=== PATIENT | female | born 1935 | race Caucasian/White ===

== ENCOUNTER 2017-02-03 13:13 | Inpatient (IN) | payer OTHER, BC ==
[~2017-02-03] VITALS: Ht 162.6 cm; Wt 60.7 kg
[~2017-02-03 13:13] MED LIST: ARTANE2 MG PO; ASPIRIN81 M1 PO; BIOTENE MOISTUR45 ML MM; BIOTENE ORALBAL42 GM MM; BUMETANIDE2 MG PO; CALCIUM600 MG PO; CARBIDOPA/LEVO1 EACH PO; COUMADIN2 MG PO; COUMADIN4 MG PO; D3 + K2 DOTS 11 EACH PO; FUROSEMIDE20 MG PO; GEMFIBROZIL600 MG PO; GLUCOSAMINE CH1 EACH PO; GLUCOSAMINE1000 MG PO; K-DUR20 MEQ PO; KLOR-CON 1010 ME1 PO; KLOR-CON M1010 MEQ PO; LASIX20 MG PO; LEXAPRO10 MG PO; LEXAPRO20 MG PO; MIRAPEX1 MG PO; MOBIC7.5 MG PO; MYCELEX10 MG PO; REFRESH LACRI-3.5 GM BOTH EYES; SENNA8.6 M1 PO; SINEMET 25-1001 EACH PO; SINEMET CR 25-1 EACH PO; SUPER B COMPLE1 EAC1 PO; SUPER B-50 COM1 EACH PO; VITAMIN D1000 INTUN PO; VITAMIN D31000 UNIT PO
[2017-02-03 15:15] LABS: HEMATOCRIT 39.1 % (36.0-46.0); MCH 30.8 PG (29.0-34.0); MCHC 32.7 G/DL (30.0-36.0); MCV 94.2 FL (83-99); NRBC (%) 0.2 /100 WBC (0-0); RBC DIS.WIDTH-CV 14.7 % (11.8-14.6); RBC DIS.WIDTH-SD 50.7 % (39-53); RED BLOOD COUNT 4.15 M/uL (3.80-5.20); WHITE BLOOD COUNT 9.8 K/uL (4.1-10.2)
[2017-02-03 15:23] LABS: INTER. NORMALIZED RATIO 0.9; PROTHROMBIN TIME 10.6 SEC (10.2-12.9)
[2017-02-03 15:27] LABS: CHLORIDE 108 mEq/L (99-109); POTASSIUM 4.4 mEq/L (3.7-5.4); SODIUM 143 mEq/L (136-147)
[2017-02-03 15:30] LABS: GLUCOSE 76 mg/dL (70-99)
[2017-02-03 15:31] LABS: ANION GAP 8 MEQ/L (2-14)
[2017-02-03 15:32] LABS: TOTAL BILIRUBIN 0.6 mg/dL (0.0-1.0)
[2017-02-03 15:33] LABS: ALKALINE PHOSPHATASE 127 IU/L (3-129); GFR ESTIMATE (CALCULATED) > 59 mL/min/
[2017-02-03 15:34] LABS: UREA NITROGEN (BUN) 22 mg/dL (9-23)
[2017-02-03 15:38] LABS: TROP-I INTERPRETATION NEGATIVE; TROPONIN-I 0.01 ng/mL (0.0-0.30)
[2017-02-03] MEDS ORDERED: GLUCOSAMINE &1 EACH PO (16:32)
[2017-02-03] MEDS ORDERED: ATORVASTATIN CA20 MG PO (16:33)
[2017-02-03] MEDS ORDERED: KENALOG,ARISTOC80 GM TP (16:33)
[2017-02-03] MEDS ORDERED: ASPIR 8181 M1 PO (16:34)
[2017-02-03] MEDS ORDERED: AMLODIPINE BESY10 MG PO (16:34)
[2017-02-03] MEDS ORDERED: MAGNESIUM400 M1 PO (16:35)
[2017-02-03 16:39] LABS: PLATELET CLUMPS PRESENT - PLATELET COUNT APPEARS ADQ.; PLATELET COUNT UNABLE TO REPORT K/uL (156-360)
[2017-02-03 17:54] LABS: ADD MIUA? YES; BILIRUBIN NEGATIVE; BLOOD NEGATIVE; COLOR YELLOW ((YELLOW)); GLUCOSE (STRIP) NEGATIVE; KETONES NEGATIVE; LEUKOCYTES LARGE; NITRITE POSITIVE; PROTEIN (STRIP) NEGATIVE; SPECIFIC GRAVITY 1.009 (1.000-1.030); UROBILINOGEN 0.2 MG/DL (0.2-1.0)
[2017-02-03 18:12] LABS: RED BLOOD CELLS 0-5 /HPF (0-5)
[2017-02-03 18:13] LABS: BACTERIA 2+ /HPF; EPITHELIAL CELLS 1+ /HPF; MUCUS NONE SEEN /LPF; UCUL ADDED? YES; WHITE BLOOD CELLS 15-20 /HPF (0-5)
[2017-02-03 18:14] LABS: CASTS PRESENT /LPF; CRYSTALS NONE SEEN; HYALINE CASTS RARE /LPF
[2017-02-03 20:47] VITALS: BP 129/60
[2017-02-04 00:13] VITALS: BP 110/56
[2017-02-04 05:04] VITALS: BP 128/59
[2017-02-04 05:17] LABS: HEMATOCRIT 34.3 % (36.0-46.0); MCHC 32.9 G/DL (30.0-36.0); MEAN PLAT.VOLUME 11.2 uM^3 (9.5-12.4); RBC DIS.WIDTH-CV 14.9 % (11.8-14.6); RBC DIS.WIDTH-SD 50.7 % (39-53); RED BLOOD COUNT 3.65 M/uL (3.80-5.20); WHITE BLOOD COUNT 8.4 K/uL (4.1-10.2)
[2017-02-04 05:43] LABS: PLATELET COUNT 168 K/uL (156-360)
[2017-02-04 06:01] LABS: ANION GAP 9 MEQ/L (2-14); CHLORIDE 112 MEQ/L (99-109); GFR ESTIMATE (CALCULATED) > 59 mL/min/; GLUCOSE 54 mg/dL (70-99); POTASSIUM 4.1 MEQ/L (3.7-5.4); SAMPLE HEMOLYSIS CHECK 0; SAMPLE ICTERIC CHECK 0; SAMPLE LIPEMIA CHECK 0; SODIUM 147 MEQ/L (136-147); UREA NITROGEN (BUN) 18 mg/dL (9-23)
[2017-02-04 06:38] LABS: PLAT.SUFFICIENCY ADEQUATE
[2017-02-04 09:35] VITALS: BP 128/61
[2017-02-04 11:43] VITALS: BP 121/80
[2017-02-04 18:10] VITALS: BP 132/74
[2017-02-04 19:45] VITALS: BP 142/63
[2017-02-04 23:49] LABS: METH RESISTANT S AUREUS PCR NEGATIVE (NEGATIVE); PROBE CHECK PASS; SPECIMEN PROCESSING CONTROL PASS
[2017-02-05] VITALS (7 sets, daily range): BP systolic 125–143; BP diastolic 59–68
[2017-02-05 09:04] LABS: ANION GAP 10 MEQ/L (2-14); CHLORIDE 111 MEQ/L (99-109); GFR ESTIMATE (CALCULATED) > 59 mL/min/; POTASSIUM 3.9 MEQ/L (3.7-5.4); SAMPLE HEMOLYSIS CHECK 0; SAMPLE ICTERIC CHECK 0; SAMPLE LIPEMIA CHECK 0; SODIUM 144 MEQ/L (136-147); UREA NITROGEN (BUN) 17 mg/dL (9-23)
[2017-02-05 09:05] LABS: GLUCOSE 47 mg/dL (70-99)
[2017-02-05 10:15] LABS: POINT-OF-CARE METER ID UU14314088; POINT-OF-CARE USER ID ENVKC36
[2017-02-06] VITALS (7 sets, daily range): BP systolic 132–149; BP diastolic 63–72
[2017-02-06 06:02] LABS: ANION GAP 9 MEQ/L (2-14); CHLORIDE 108 MEQ/L (99-109); GFR ESTIMATE (CALCULATED) > 59 mL/min/; POTASSIUM 3.3 MEQ/L (3.7-5.4); SAMPLE HEMOLYSIS CHECK 0; SAMPLE ICTERIC CHECK 0; SAMPLE LIPEMIA CHECK 0; SODIUM 143 MEQ/L (136-147); UREA NITROGEN (BUN) 19 mg/dL (9-23)
[2017-02-06 06:03] LABS: GLUCOSE 154 mg/dL (70-99)
[2017-02-07 04:04] VITALS: BP 144/70
[2017-02-07 06:46] LABS: ANION GAP 6 MEQ/L (2-14); CHLORIDE 110 MEQ/L (99-109); GFR ESTIMATE (CALCULATED) > 59 mL/min/; GLUCOSE 144 mg/dL (70-99); SAMPLE HEMOLYSIS CHECK 0; SAMPLE ICTERIC CHECK 0; SAMPLE LIPEMIA CHECK 0; SODIUM 144 MEQ/L (136-147); UREA NITROGEN (BUN) 23 mg/dL (9-23)
[2017-02-07 07:45] VITALS: BP 141/76
[2017-02-07 16:14] VITALS: BP 158/74
[2017-02-07 20:26] VITALS: BP 144/68
[2017-02-07 23:29] VITALS: BP 146/69
[2017-02-08 04:00] VITALS: BP 157/74
[2017-02-08 07:30] VITALS: BP 154/70
[2017-02-08] MEDS ORDERED: LEVAQUIN750 MG PO (10:36)
[2017-02-08] MEDS ORDERED: HYOSCYAMINE0.125 MG SL (10:40)
[2017-02-08] MEDS ORDERED: ATIVAN0.5 MG PO (10:40)
[2017-02-08] MEDS ORDERED: MORPHINE CON20 MG/M1 PO (10:40)
[2017-02-08 12:09] VITALS: BP 154/74
== END 2017-02-08 15:24 | disposition hospice, home (50) | DRG 177 ==
LOC: EME 13:13 → 4EAST 16:26 → EDOF 16:26 → ENRESERV 16:27 → CANRESERV 17:19 → ENRESERV 18:16 → EDOF 18:44 → 4EAST 19:30 → ENRESERV 02-06 19:57 → 3EAST 02-06 20:48
PROVIDERS: Emergency Medicine; Family Medicine; Internal Medicine
DX: J69.0 Pneumonitis due to inhalation of food and vomit (principal); N39.0 Urinary tract infection, site not specified; G93.40 Encephalopathy, unspecified; I69.351 Hemiplegia and hemiparesis following cerebral infarction affecting right dominant side; G20 Parkinson's disease; I48.0 Paroxysmal atrial fibrillation; B96.5 Pseudomonas (aeruginosa) (mallei) (pseudomallei) as the cause of diseases classified elsewhere; R09.02 Hypoxemia; R68.0 Hypothermia, not associated with low environmental temperature; I10 Essential (primary) hypertension; I25.10 Atherosclerotic heart disease of native coronary artery without angina pectoris; R32 Unspecified urinary incontinence; Z66 Do not resuscitate; Z79.82 Long term (current) use of aspirin; Z99.3 Dependence on wheelchair; Z87.440 Personal history of urinary (tract) infections; Z90.710 Acquired absence of both cervix and uterus
CPT/HCPCS: 71010; 80048; 80053; 81003; 82948; 83605; 84484; 85027; 85610; 87040; 87077; 87086; 87186; 87641; 92610 GN; 93005; 99281; 99285; J0290; J0696; J1644; J2543; J7030; J7050